=== PATIENT | female | born 1985 | race Caucasian/White ===

== ENCOUNTER 2021-03-23 08:24 | Emergency (ER) | payer OTHER ==
[~2021-03-23] VITALS: Ht 165.1 cm; Wt 70.3 kg
[2021-03-23] MEDS ORDERED: METHYLPHENIDATE20 M4 PO (08:55)
[2021-03-23] MEDS ORDERED: LAMICTAL200 MG PO (08:55)
[2021-03-23] MEDS ORDERED: ZOLOFT50 MG PO (08:55)
[2021-03-23] MEDS ORDERED: ONDANSETRON ODT8 MG PO (09:23)
--- OUTSIDE RECORDS SUMMARY | 2021-03-23 11:14 | XMS ---
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 E.D. VISIT COUNT (12 MO.) [facility] TOTAL 5 NOTE: Visits indicate total known visits. ED/UCC VISIT TRACKING (12 MO.) 03/23/2021 08:26 [facility] [place] TYPE: Emergency COMPLAINT: - HEAD INJURY 03/08/2021 20:24 [facility] Letha CONTRERAS TYPE: Emergency DIAGNOSES: - COVID-19 - Cough, unspecified - SOB COVID + - Shortness of Breath [facility]21 16[facility] DIAGNOSES: - Acute bronchitis, unspecified 12/09/2020 12:51 [facility] Letha CONTRERAS TYPE: Emergency DIAGNOSES: - Anxiety disorder, unspecified - Shaking 04/07/2020 19:12 [facility] Letha CONTRERAS TYPE: Emergency DIAGNOSES: - Allergic Reaction - Other stimulant use, unspecified with intoxication, unspecified - Possible Seizure INPATIENT VISIT TRACKING (12 MO.) No inpatient visits to display in this time frame [email or web address]
== END 2021-03-23 10:06 | disposition home or self-care (01) ==
LOC: ED 08:24
DX: S06.0X0A Concussion without loss of consciousness, initial encounter (principal); Z88.5 Allergy status to narcotic agent; Z88.8 Allergy status to other drugs, medicaments and biological substances; Z79.899 Other long term (current) drug therapy; W22.8XXA Striking against or struck by other objects, initial encounter; Y99.0 Civilian activity done for income or pay
CPT/HCPCS: 99283; A9270